=== PATIENT | female | born 1965 | race Caucasian/White ===

== ENCOUNTER 2020-11-18 12:20 | Outpatient (REF) | payer MEDICARE, MEDICAID, SELFPAY ==
--- NOTE | 2020-11-18 12:00 | ENDOMET_PTH ---
PATIENT: TAYLOR MAURICE LOC: [facility] U#:[id number] AGE/SX: 55/F ROOM: RE11/18/[address]: Shyanne Osorio : 1965 BED: DIS: 11/18/2020 SPEC #: [id number] RECD: 11/18/20 18:09 STATUS: SUDHAKAR REJim #: [id number] ANNA: 11/18/20 12:[address]: Shyanne Osorio DEPT: Surgical Specimen RECD BY: Dejah Warner ENTERED: 11/18/20 18:09 SP TYPE: Endomet OTHR DR: Yamilex Marrero Tissues: 1 - ENDOMETRIUM BX/DONNA Procedures: GROSS AND MICRO LEVEL 4 Comments: [id number]
--- NOTE | 2020-11-18 12:00 | PAPFT_PTH ---
PATIENT: TAYLOR MAURICE LOC: [facility] U#:[id number] AGE/SX: 55/F ROOM: RE11/18/[address]: Shyanne Osorio : 1965 BED: DIS: 11/18/2020 SPEC #: [id number] RECD: 11/18/20 17:47 STATUS: SUDHAKAR DAILEY #: [id number] ANNA: 11/18/20 12:[address]: Shyanne Osorio DEPT: [facility] Cytology RECD BY: Dejah Warner ENTERED: 11/18/20 17:48 SP TYPE: PAPFT OTHR DR: Yamilex Marrero Tissues: 1 - CX/ENDOCX FOR PAP SMEARS Procedures: PAP THIN PREP/[facility] Screening HPV DNA PROBE Comments: [id number]
== END 2020-11-18 12:21 | disposition home or self-care (01) ==
LOC: LBN 12:20
PROVIDERS: PCP Nurse Practitioner Family; Visit Provider Obstetrics & Gynecology Gynecology
DX: Z12.4 Encounter for screening for malignant neoplasm of cervix (principal); N93.9 Abnormal uterine and vaginal bleeding, unspecified; N85.01 Benign endometrial hyperplasia; Z11.51 Encounter for screening for human papillomavirus (HPV)
CPT/HCPCS: 88142; 88305; 87624

== ENCOUNTER 2020-12-11 14:31 | Outpatient (CLI) | payer MEDICARE, MEDICAID, SELFPAY ==
[2020-12-11 15:08] LABS: HCT 32.5 % (36.0-46.0); HGB 10.1 g/dL (11.2-15.7); MCH 28.3 pg (27.0-33.0); MCHC 31.1 % (32.0-36.0); MPV 10.2 fL (8.0-11.0); Platelet Count 287 10^3/uL (130-400); RBC 3.57 10^6/uL (3.93-5.22); RDW 16.1 % (11.7-14.6); RDW-SD 53.1 fL; WBC 10.16 10^3/uL (4.4-10.8)
== END 2020-12-11 14:32 | disposition home or self-care (01) ==
LOC: LBO 14:34
PROVIDERS: PCP Nurse Practitioner Family; Visit Provider Obstetrics & Gynecology Gynecology
DX: N93.9 Abnormal uterine and vaginal bleeding, unspecified (principal)
CPT/HCPCS: 36415; 85027

== ENCOUNTER 2020-12-11 14:56 | Outpatient (REF) | payer MEDICARE, MEDICAID, SELFPAY ==
--- NOTE | 2020-12-11 14:30 | ENDOMET_PTH ---
PATIENT: TAYLOR MAURICE LOC: [facility] U#:[id number] AGE/SX: 55/F ROOM: RE12/11/[address]: Shyanne Osorio : 1965 BED: DIS: 12/11/2020 SPEC #: [id number] RECD: 12/11/20 17:47 STATUS: SUDHAKAR REQ #: [id number] ANNA: 12/11/20 14:[address]: Shyanne Osorio DEPT: Surgical Specimen RECD BY: Dejah Warner ENTERED: 12/11/20 17:48 SP TYPE: Endomet OTHR DR: Yamilex Marrero Tissues: 1 - ENDOMETRIUM BX/DONNA Procedures: GROSS AND MICRO LEVEL 4 Comments: [id number]
== END 2020-12-11 14:57 | disposition home or self-care (01) ==
LOC: LBN 14:56
PROVIDERS: PCP Nurse Practitioner Family; Visit Provider Obstetrics & Gynecology Gynecology
DX: N85.01 Benign endometrial hyperplasia (principal); N93.9 Abnormal uterine and vaginal bleeding, unspecified
CPT/HCPCS: 88305